=== PATIENT | male | born 1965 | race Caucasian/White ===

== ENCOUNTER 2018-02-26 20:55 | Emergency (ER) | payer OTHER ==
[~2018-02-26] VITALS: Ht 172.7 cm; Wt 133.4 kg
[2018-02-26] MEDS ORDERED: TOPROL XL100 M1 PO (21:29)
[2018-02-26] MEDS ORDERED: PLAVIX75 MG PO (21:29)
[2018-02-26] MEDS ORDERED: PEPCID20 MG PO (21:30)
[2018-02-26] MEDS ORDERED: LOSARTAN-HCTZ1 EACH PO (21:30)
[2018-02-26] MEDS ORDERED: NORVASC5 MG PO (21:30)
[2018-02-26] MEDS ORDERED: ASA81 MG PO (21:30)
[2018-02-26] MEDS ORDERED: LEXAPRO5 MG PO (21:31)
[2018-02-26] MEDS ORDERED: METADATE ER20 MG PO (21:31)
[2018-02-27] MEDS ORDERED: VOLTAREN-XR100 MG PO (01:12)
[2018-02-27] MEDS ORDERED: NORFLEX100MG PO (01:12)
== END 2018-02-27 01:21 | disposition home or self-care (01) ==
LOC: ER 20:55
DX: R51 Headache (principal); M25.511 Pain in right shoulder; M62.838 Other muscle spasm

== ENCOUNTER 2019-06-08 08:37 | Inpatient (IN) | payer OTHER ==
[~2019-06-08] VITALS: Ht 170.2 cm; Wt 131.1 kg
[~2019-06-08 08:37] MED LIST: ASA81 MG PO; LEXAPRO5 MG PO; LOSARTAN-HCTZ1 EACH PO; METADATE ER20 MG PO; NORFLEX100MG PO; NORVASC5 MG PO; PEPCID20 MG PO; PLAVIX75 MG PO; TOPROL XL100 M1 PO; VOLTAREN-XR100 MG PO
[2019-06-24] MEDS ORDERED: SIMVASTATIN10 MG (09:38)
== END 2019-07-02 17:50 | DRG 470 ==
LOC: SURG 06-24 07:15 → O/R 06-30 05:20 → SURG 06-30 05:20
PROVIDERS: ADMIT Orthopaedic Surgery
PROC: 0SPC04Z Removal of Internal Fixation Device from Right Knee Joint, Open Approach (ICD-10-PCS; 2019-06-30)
PROC: 0SRC0J9 Replacement of Right Knee Joint with Synthetic Substitute, Cemented, Open Approach (ICD-10-PCS; principal; 2019-06-30 12:30)
DX: M17.11 Unilateral primary osteoarthritis, right knee (principal); D62 Acute posthemorrhagic anemia; T84.89XA Other specified complication of internal orthopedic prosthetic devices, implants and grafts, initial encounter; J45.909 Unspecified asthma, uncomplicated; Z96.651 Presence of right artificial knee joint

== ENCOUNTER 2022-03-18 12:10 | Emergency (ER) | payer OTHER ==
[~2022-03-18] VITALS: Ht 170.2 cm; Wt 140.6 kg
[~2022-03-18 12:10] MED LIST changes: +SIMVASTATIN10 MG
[2022-03-18] MEDS ORDERED: PLAVIX75 MG PO (12:32)
[2022-03-18] MEDS ORDERED: LAMICTAL5 MG PO (12:32)
== END 2022-03-18 14:37 | disposition home or self-care (01) ==
LOC: ER 12:10
DX: K04.7 Periapical abscess without sinus (principal); K08.89 Other specified disorders of teeth and supporting structures

== ENCOUNTER 2022-08-26 11:14 | Emergency (ER) | payer OTHER ==
[~2022-08-26] VITALS: Ht 170.2 cm; Wt 135.6 kg
[~2022-08-26 11:14] MED LIST changes: +LAMICTAL5 MG PO
[2022-08-26] MEDS ORDERED: GABAPENTIN400 MG PO (11:51)
[2022-08-26] MEDS ORDERED: RELAFEN DS1000 MG (11:52)
== END 2022-08-26 15:01 | disposition home or self-care (01) ==
LOC: ER 11:14
DX: J06.9 Acute upper respiratory infection, unspecified (principal); M62.838 Other muscle spasm

== ENCOUNTER 2022-09-13 15:11 | Emergency (ER) | payer OTHER ==
[~2022-09-13] VITALS: Ht 170.2 cm; Wt 133.8 kg
[~2022-09-13 15:11] MED LIST changes: +GABAPENTIN400 MG PO; +RELAFEN DS1000 MG
== END 2022-09-13 17:16 | disposition home or self-care (01) ==
LOC: ER 15:11
DX: K05.10 Chronic gingivitis, plaque induced (principal); K08.89 Other specified disorders of teeth and supporting structures

== ENCOUNTER 2023-05-17 08:00 | Inpatient (IN) | payer OTHER ==
[~2023-05-17] VITALS: Ht 170.2 cm; Wt 135.2 kg
[2023-05-17] MEDS ORDERED: CYMBALTA60 MG PO (08:45)
[2023-05-17] MEDS ORDERED: PROTONIX40 MG PO (08:46)
[2023-05-17] MEDS ORDERED: HYDROCHLOROTHIA25 MG PO (08:46)
[2023-05-21] MEDS ORDERED: NIFEDIPINE ER30 M1 (15:34)
[2023-05-21] MEDS ORDERED: LOSARTAN POTAS100 MG (15:34)
[2023-05-21] MEDS ORDERED: SUCRALFATE1 GM (15:34)
[2023-05-21] MEDS ORDERED: FLONASE16 GM (15:35)
[2023-05-21] MEDS ORDERED: TAMSULOSIN HCL0.4 MG (15:35)
[2023-05-21] MEDS ORDERED: GABAPENTIN600 MG (15:35)
[2023-05-21] MEDS ORDERED: TOLTERODINE TART4 MG (15:35)
[2023-05-21] MEDS ORDERED: SODIUM CHLORIDE3 M1 (15:35)
[2023-05-23] MEDS ORDERED: NORFLEX100MG PO (12:59)
[2023-05-23] MEDS ORDERED: GABAPENTIN100 MG PO (12:59)
[2023-05-23] MEDS ORDERED: OXYC1TAB9 PO (12:59)
[2023-05-23] MEDS ORDERED: XARELTO10 MG PO (12:59)
== END 2023-05-23 18:09 | DRG 470 ==
LOC: SURG 05-21 07:00 → O/R 05-21 11:15 → SURG 05-21 11:15
PROVIDERS: ADMIT Orthopaedic Surgery; ATTEND Orthopaedic Surgery
PROC: 0SRD0JZ Replacement of Left Knee Joint with Synthetic Substitute, Open Approach (ICD-10-PCS; principal; 2023-05-21 07:00)
DX: M17.12 Unilateral primary osteoarthritis, left knee (principal); D62 Acute posthemorrhagic anemia; I10 Essential (primary) hypertension